=== PATIENT | female | born 1995 | race Caucasian/White ===

== ENCOUNTER 2019-01-22 10:23 | Emergency (ER) | payer MEDICAID ==
[2019-01-22] MEDS ORDERED: Ketorolac 60 MG/2 ML SDV IM ONE (11:08)
--- NOTE | 2019-01-22 11:16 | EDM.PDOC ---
ED HPI GENERAL MEDICAL PROBLEM - General Chief Complaint: General Stated Complaint: Dental Pain Time Seen by Provider: 01/22/19 11:00 Source of Information: Reports: Patient, Old Records History Limitations: Reports: No Limitations - History of Present Illness INITIAL COMMENTS - FREE TEXT/NARRATIVE: Odessa returns to [facility] for managment of dental pain affecting a L upper molar, sys x 2 weeks. She was seen in yesterday and administered Toradol IM and an antibx prescription. Sxs seemed improved, but pain relapsed following a minor blow to the L face from a family pet. She did not sleep well last pm. She has been med compliant. She is not . Past Medical History HEENT History: Reports: Impaired Vision Genitourinary History: Reports: UTI, Recurrent Psychiatric History: Reports: Anxiety, Bipolar, Depression, Psych Hospitalization(s), PTSD, Other (See Below) Other Psychiatric History: borderline personality disorder Dermatologic History: Reports: Eczema - Past Surgical History HEENT Surgical History: Reports: Adenoidectomy, Tonsillectomy, Other (See Below) Other HEENT Surgeries/Procedures: L ear surgery Social & Family History - Family History Family Medical History: Noncontributory - Tobacco Use Smoking Status *Q: Current Every Day Smoker Years of Tobacco use: 5 Packs/Tins Daily: 0.5 - Caffeine Use Caffeine Use: Reports: Soda - Recreational Drug Use Recreational Drug Use: No ED ROS GENERAL - Review of Systems Review Of Systems: Comprehensive ROS is negative, except as noted in HPI. ED EXAM, GENERAL - Physical Exam Exam: See Below Exam Limited By: Uncooperative General Appearance: WD/WN, Mild Distress Eye Exam: Bilateral Eye: EOMI, Normal Inspection, PERRL Ears: Normal External Exam, Normal TMs Nose: Normal Inspection Throat/Mouth: Normal Lips, Normal Voice, Other (tender and deeply fx and caried #15 molar with limited gingival swelling; caried #1, #2, #14, #16, #17, #30, #31 , #32) Head: Normocephalic Neck: Normal Inspection Respiratory/Chest: Lungs Clear Cardiovascular: Regular Rate, Rhythm, No Murmur Back Exam: Normal Inspection Extremities: Normal Inspection Neurological: Alert, Oriented, Normal Cognition, No Motor/Sensory Deficits Psychiatric: Anxious, Tearful Skin Exam: Warm Lymphatic: No Adenopathy Course - Vital Signs Text/Narrative:: Following assessment, I administered Toradol 60 mg IM, and provided contact information for walk in dental services in [place], [place], as dental surgery is needed. Last Recorded V/S: Last Vital Signs Temp 36.3 C 01/22/19 10:40 Pulse 63 01/22/19 10:40 Resp 14 01/22/19 10:40 BP 122/88 01/22/19 10:40 Pulse Ox 100 01/22/19 10:40 - Orders/Labs/Meds Orders: Active Orders 24 hr Category Date Time Status Ketorolac [Toradol] Med 01/22/19 11:08 Once 60 mg IM ONETIME ONE Medication Orders Ketorolac Tromethamine (Toradol) 60 mg IM ONETIME ONE Stop: 01/22/19 11:09 Meds: Medications Generic Name Dose Route Start Last Admin Trade Name Zafar PRN Reason Stop Dose Admin Ketorolac Tromethamine 60 mg 01/22/19 11:08 Toradol IM 01/22/19 11:09 ONETIME ONE Departure - Departure Time of Disposition: 11:20 Disposition: Home, Self-Care 01 Condition: Fair Clinical Impression: Pain, dental - Discharge Information *PRESCRIPTION DRUG MONITORING PROGRAM REVIEWED*: Not Applicable *COPY OF PRESCRIPTION DRUG MONITORING REPORT IN PATIENT KRIS: Not Applicable Referrals: PCP,None [Primary Care Provider] - - Problem List & Annotations (1) Pain, dental SNOMED Code(s): 87047077 Code(s): K08.89 - OTHER SPECIFIED DISORDERS OF TEETH AND SUPPORTING STRUCTURES Status: Acute Current Visit: Yes Annotation/Comment:: Dental pain, possible apical abscess. Following administration of Toradol 60 mg IM, information to obtain [facility] access was provided for [place], [place], as dental surgery is needed for suspected apical abscess. Patient will follow thru today. - Problem List Review Problem List Initiated/Reviewed/Updated: Yes - My Orders Last 24 Hours: My Active Orders 01/22/19 11:08 Ketorolac [Toradol] 60 mg IM ONETIME ONE - Assessment/Plan Last 24 Hours: My Active Orders 01/22/19 11:08 Ketorolac [Toradol] 60 mg IM ONETIME ONE Plan: Follow up with [facility].
== END 2019-01-22 11:33 | disposition home or self-care (01) ==
LOC: FB.ED 10:23
DX: K08.89 Other specified disorders of teeth and supporting structures (principal); F17.210 Nicotine dependence, cigarettes, uncomplicated
CPT/HCPCS: 96372; 99282; J1885

== ENCOUNTER 2019-05-16 09:15 | Emergency (ER) | payer MEDICAID ==
--- NOTE | 2019-05-16 09:54 | EDM.PDOC ---
ED HPI GENERAL MEDICAL PROBLEM - General Chief Complaint: Respiratory Problem Stated Complaint: FATIGUE COUGH Time Seen by Provider: 05/16/19 10:10 Source of Information: Reports: Patient History Limitations: Reports: No Limitations - History of Present Illness INITIAL COMMENTS - FREE TEXT/NARRATIVE: patient presented to the ED because of cough and cold, frontal and facial pain for 1 week. there is no associated fever/chills. - Related Data Allergies Allergy/AdvReac Type Severity Reaction Status Date / Time No Known Allergies Allergy Verified 01/22/19 11:22 Home Meds: Home Meds Azithromycin [Zithromax] 250 mg PO DAILY #6 tab 05/16/19 [Rx] Past Medical History HEENT History: Reports: Impaired Vision Genitourinary History: Reports: UTI, Recurrent Psychiatric History: Reports: Anxiety, Bipolar, Depression, Psych Hospitalization(s), PTSD, Other (See Below) Other Psychiatric History: borderline personality disorder Dermatologic History: Reports: Eczema - Past Surgical History HEENT Surgical History: Reports: Adenoidectomy, Tonsillectomy, Other (See Below) Other HEENT Surgeries/Procedures: L ear surgery Social & Family History - Family History Family Medical History: Noncontributory - Caffeine Use Caffeine Use: Reports: Soda ED ROS GENERAL - Review of Systems Review Of Systems: See Below Constitutional: Reports: No Symptoms HEENT: Reports: No Symptoms Respiratory: Reports: Cough. Denies: Sputum Cardiovascular: Reports: No Symptoms Endocrine: Reports: No Symptoms GI/Abdominal: Reports: No Symptoms : Reports: No Symptoms Musculoskeletal: Reports: No Symptoms Skin: Reports: No Symptoms Neurological: Reports: No Symptoms Psychiatric: Reports: No Symptoms ED EXAM, GENERAL - Physical Exam Exam: See Below Exam Limited By: No Limitations General Appearance: Alert, No Apparent Distress Eye Exam: Bilateral Eye: PERRL Ears: Normal External Exam, Normal Canal, Hearing Grossly Normal Nose: Normal Inspection, Normal Mucosa, No Blood Throat/Mouth: Normal Inspection, Normal Lips, Normal Teeth Head: Atraumatic, Normocephalic Neck: Normal Inspection, Supple, Non-Tender Respiratory/Chest: No Respiratory Distress, Lungs Clear, Normal Breath Sounds Back Exam: Normal Inspection, Full Range of Motion Extremities: Normal Inspection, Normal Range of Motion Neurological: Alert, Oriented, CN II-XII Intact Psychiatric: Normal Affect Skin Exam: Warm Course - Vital Signs Text/Narrative:: reassurance Last Recorded V/S: Last Vital Signs Temp 36.1 C 05/16/19 10:10 Pulse 65 05/16/19 10:10 Resp 16 05/16/19 10:10 BP 119/66 05/16/19 10:10 Pulse Ox 100 05/16/19 10:10 Departure - Departure Time of Disposition: 09:50 Disposition: Home, Self-Care 01 Condition: Good Clinical Impression: Acute sinusitis - Discharge Information Prescriptions: Azithromycin [Zithromax] 250 mg PO DAILY #6 tab Instructions: Sinusitis, Adult, [id number] Referrals: PCP,None [Primary Care Provider] - Forms: ED Department Discharge Additional Instructions: please read discharge instructions on acute sinusitis increase oral fluids mucinex 600 mg twice daily for 5 days [id number] as directed follow up as needed Sepsis Event Note - Focused Exam Vital Signs: Vital Signs Temp Pulse Resp BP Pulse Ox 05/16/19 10:10 36.1 C 65 16 119/66 100 Date Exam was Performed: 05/16/19 Time Exam was Performed: 12:57
== END 2019-05-16 10:22 | disposition home or self-care (01) ==
LOC: FB.ED 09:15
DX: J01.90 Acute sinusitis, unspecified (principal)
CPT/HCPCS: 99283